=== PATIENT | male | born 1980 | race African-American/Black ===

== ENCOUNTER 2019-07-17 15:12 | Emergency (ER) | payer OTHER ==
--- OUTSIDE RECORDS SUMMARY | 2019-07-17 15:20 | XMS REPORT | Continuity of Care Document ---
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 Problems Description No Information Available Social History Type Date Description Comments Sex Unknown ETOH Use Occasionally consumes alcohol Tobacco Use Start: Unknown Patient denies history of smoking Smoking Status Reviewed: 07/16/19 Patient denies history of smoking Allergies, Adverse Reactions, Alerts Description No Known Drug Allergies Medications Active Medications SIG Qnty Indications Ordering Date Provider Vitamin D2 1 cap every night 30tabs Suzanne Ash, 07/16/2019 [address] PNP-BC, FINANCIAL REPORTING ACCOUNTANT, Tablets [facility]cl[facility] Voltaren apply to hip/knee 100gm M54.5 Suzanne Ash, 07/16/2019 1% Gel as needed up to PNP-BC, FINANCIAL REPORTING ACCOUNTANT, three times a day [facility] Lansoprazole 1 by mouth every 60caps K21.9 Suzanne Ash, 07/16/2019 30mg day if no PNP-BC, FINANCIAL REPORTING ACCOUNTANT, Capsules DR improvement in a Ibclc week increase to bid Betamethasone apply to face bid 45gm L20.9 Suzanne Ash, 07/16/2019 Valerate as needed PNP-BC, FINANCIAL REPORTING ACCOUNTANT, 0.1% Cream [facility]cl[facility] Folic Acid 1 tablet by mouth 30tabs Suzanne Ash, 1mg Tablets every day PNP-BC, FINANCIAL REPORTING ACCOUNTANT, [place]cl[facility] Ibuprofen 1 tab by mouth 90tabs Suzanne Ash, 800mg Tablets three times a day PNP-BC, FINANCIAL REPORTING ACCOUNTANT, as needed [facility] Vitamin B1 1 by mouth every 30tabs Suzanne Ash, 100mg day PNP-BC, FINANCIAL REPORTING ACCOUNTANT, Tablets [facility]cl[facility] Tab-A-Nohemi 1 by mouth every 30tabs Suzanne Ash, Tablets day PNP-BC, FINANCIAL REPORTING ACCOUNTANT, [facility]cl[facility] History Medications Vitamin D3 1cap every night Suzanne Ash, 07/16/2019 - 07/16/2019 [address] PNP-BC, FINANCIAL REPORTING ACCOUNTANT, [place]cl[facility] Capsules Immunizations Description No Information Available Vital Signs Date Vital Result Comment 07/16/2019 11:13am BP Systolic Sitting Left Arm 118 mmHg BP Diastolic Sitting Left Arm 76 mmHg Body Temperature 99.1 F Heart Rate 98 /min Respiratory Rate 18 /min Height 64 inches 5'4" Weight 166.00 lb BMI (Body Mass Index) 28.5 kg/m2 BSA (Body Surface Area) 1.81 m2 [place] body weight in kilograms 59 kg O2 % BldC Oximetry 96 % Results Description No Information Available Procedures Description No Information Available Medical Devices Description No Information Available Encounters Type Date Location Provider Dx Diagnosis Office Visit 07/16/2019 Family Medicine Suzanne Ash, M54.5 Low back pain 11:[address] PNP-BC, FINANCIAL REPORTING ACCOUNTANT, Ibclc K21.9 Gastro-esophageal reflux disease without esophagitis L20.9 Atopic dermatitis, unspecified Assessments Date Code Description Provider 07/16/2019 M54.5 Low back pain Suzanne Ash PNP-BC, FINANCIAL REPORTING ACCOUNTANT, Ibclc 07/16/2019 K21.9 Gastro-esophageal reflux disease Suzanne Ash PNP-BC, FINANCIAL REPORTING ACCOUNTANT , without esophagitis Ibclc 07/16/2019 L20.9 Atopic dermatitis, unspecified Suzanne Ash PNP-BC, FINANCIAL REPORTING ACCOUNTANT, Ibclc Plan of Treatment No Information Available Functional Status Description No Information Available Mental Status Description No Information Available Referrals Description No Information Available
[2019-07-17 15:42] VITALS: BP 113/69
--- NOTE | 2019-07-17 16:31 | UC ---
Dental HPI - HPI Summary HPI Summary: 39yo male presenting with request for evaluation of area where his left upper molar was extracted 3 days ago. Patient states "it just hurts." Denies any drainage, bleeding or swelling. Denies radiating pain. Denies fever and chills. Denies foul taste in his mouth. Denies n/v. States he is doing the salt water gargles his dentist told him to do and also take an antibiotic 3 times daily. His girlfriend states she "thinks it is clindamycin" and he agreed. States he has 3 more days of antibiotic treatment left. - History of Current Complaint Chief Complaint: UCDentalProblem Stated Complaint: DENTAL PAIN Hx Obtained From: Patient Pain Intensity: 8 Pain Scale Used: 0-10 Numeric - Allergies/Home Medications Allergies/Adverse Reactions: Allergies Allergy/AdvReac Type Severity Reaction Status Date / Time No Known Allergies Allergy Verified 07/17/19 15:34 Home Medications: Home Medications Ibuprofen TAB* [Motrin TAB* 600 MG] 600 mg PO Q6H PRN 07/17/19 [History Confirmed 07/17/19] cephALEXin [Keflex] 500 mg PO TID 07/17/19 [History Confirmed 07/17/19] PMH/Surg Hx/FS Hx/Imm Hx - Surgical History Surgical History: Yes Surgery Procedure, Year, and Place: left arm fx repair - Family History Known Family History: Positive: Non-Contributory - Social History Alcohol Use: None Substance Use Type: None Smoking Status (MU): Never Smoked Tobacco Review of Systems All Other Systems Reviewed And Are Negative: Yes Constitutional: Positive: Negative Skin: Positive: Negative ENT: Positive: Dental Pain Respiratory: Positive: Negative Cardiovascular: Positive: Negative Gastrointestinal: Positive: Negative Musculoskeletal: Positive: Negative Neurological/Mental Status: Positive: Negative Physical Exam - Summary Physical Exam Summary: Vital Signs Reviewed: Yes A+Ox3, no distress Eyes: Conjunctiva Clear ENT: Hearing grossly normal Dental exam: missing tooth #15, mild TTP of socket, no drainage, no swelling, no fluctuance, no bleeding, no erythema neck: supple, no lymphadenopathy Respiratory: Positive: No respiratory distress, No accessory muscle use Cardiovascular: skin color reflect adequate perfusion Musculoskeletal Exam: PALMER x 4 without difficulty Neurological: Positive: Alert, ambulatory without difficulty Psychological: Positive: age appropriate behavior Skin: Positive: no rash, no ecchymosis Vital Signs: Initial Vital Signs Temp 98.3 F 07/17/19 15:36 Pulse 78 07/17/19 15:36 Resp 20 07/17/19 15:36 BP 113/69 07/17/19 15:36 Pulse Ox 100 07/17/19 15:36 Dental Complaint Course/Dx - Course Course Of Treatment: Discussed with patient that there are no obvious signs or symptoms of dental infection at this time. I instructed the patient to continue with saltwater gargles, Tylenol or ibuprofen for pain relief, and to finish the course of antibiotics given to him by his dentist. I instructed him to follow up with his dentist within the next week if symptoms not improving over the occipital days. Educated on signs and symptoms of infection and instructed to go to the ED if any occur. Patient voiced understanding and agreed with the treatment plan. - Differential Dx/Diagnosis Provider Diagnosis: S/P tooth extraction, Pain of tooth socket Discharge ED - Sign-Out/Discharge Documenting (check all that apply): Patient Departure All imaging exams completed and their final reports reviewed: No Studies - Discharge Plan Condition: Stable Disposition: HOME Patient Education Materials: Tooth Extraction (DC) Referrals: Suzanne Ash NP [Primary Care Provider] - Additional Instructions: Continue to take your antibiotics. Continue with salt water gargles. Take ibuprofen and/or tylenol for pain relief. Follow up with your dentist within the next 5-7 days if symptoms not improving. Go to the emergency room with any new or worsening symptoms that were discussed today. - Billing Disposition and Condition Condition: STABLE Disposition: Home - Attestation Statements Provider Attestation: This patient was not seen by me. I was available for consult. Chart reviewed. MARÍA
== END 2019-07-17 16:48 | disposition home or self-care (01) ==
LOC: UCCORT 15:12
DX: K08.89 Other specified disorders of teeth and supporting structures (principal); Z98.818 Other dental procedure status
CPT/HCPCS: 99201; G0463